=== PATIENT | male | born 1940 | race Caucasian/White ===

== ENCOUNTER 2018-05-31 07:22 | Inpatient (IN) | payer MEDICARE, BC ==
[~2018-05-31] VITALS: Ht 193 cm; Wt 72.6 kg
[2018-05-31 08:20] VITALS: BP 99/55
[2018-05-31 08:30] LABS: ANION GAP 8 mmol/L (5-15); BLOOD UREA NITROGEN 52 mg/dL (7-18); CALCIUM 9.5 MG/DL (8.5-10.1); CARBON DIOXIDE 24 MMOL/L (21-32); CHLORIDE 108 MMOL/L (98-107); CREATININE 1.6 MG/DL (0.55-1.30); POTASSIUM 3.8 MMOL/L (3.5-5.1); SODIUM 140 MMOL/L (136-145)
[2018-05-31 08:33] LABS: BASOPHILS % (AUTO) 0.5 % (0.0-2.0); EOSINOPHILS % (AUTO) 0.1 % (0.0-3.0); HEMATOCRIT 30.1 % (42.0-52.0); HEMOGLOBIN 10.1 G/DL (14.2-18.0); LYMPHOCYTES % (AUTO) 11.9 % (20.0-45.0); MEAN CORPUSCULAR VOLUME 91 FL (80-99); MONOCYTES % (AUTO) 7.3 % (1.0-10.0); NEUTROPHILS % (AUTO) 80.2 % (45.0-75.0); PLATELET COUNT 146 K/UL (150-450); RED BLOOD COUNT 3.29 M/UL (4.70-6.10); WHITE BLOOD COUNT 8.6 K/UL (4.8-10.8)
[2018-05-31] MEDS ORDERED: HYDRALAZINE HCL50 MG ORAL (08:42)
[2018-05-31] MEDS ORDERED: DIOVAN160 MG ORAL (08:42)
[2018-05-31] MEDS ORDERED: PANTOPRAZOLE SO40 MG ORAL (08:42)
[2018-05-31] MEDS ORDERED: PROSCAR5 MG ORAL (08:42)
[2018-05-31] MEDS ORDERED: QUINAPRIL HCL20 MG PO (08:42)
[2018-05-31 08:44] LABS: ALANINE AMINOTRANSFERASE 21 U/L (12-78); ALBUMIN 3.5 G/DL (3.4-5.0); ALBUMIN/GLOBULIN RATIO 1.1 (1.0-2.7); ALKALINE PHOSPHATASE 61 U/L (46-116); ASPARTATE AMINO TRANSFERASE 16 U/L (15-37); BILIRUBIN,TOTAL 0.7 MG/DL (0.2-1.0); CKMB < 0.5 NG/ML (0.0-3.6); CREATINE KINASE 96 U/L (26-308)
--- NOTE | 2018-05-31 08:47 | Emergency Room Report ---
History of Present Illness General Chief Complaint: General Complaint Source: EMS Present Illness HPI 77-year-old male presents ED for evaluation. Patient brought in by EMS for shaking episode. Witnessed by this morning. States that his arms and legs were shaking uncontrollably. Lasted for approximately 15-20 seconds. Had 4 episodes. States that patient appeared conscious the entire time. No tongue injury. No incontinence. No prior history of seizures. states that patient had a few falls this past week. States has been very hot outside. Appears at baseline mentation. Denies any chest pain or shortness of breath. Denies fevers or chills. No other aggravating relieving factors. Denies any other associated symptoms Allergies: Coded Allergies: TETRACYCLINE (Verified Allergy, Unknown, 05/31/18) Patient History Past Medical History: HTN Past Surgical History: none Pertinent Family History: none Social History: Denies: smoking, alcohol use, drug use Immunizations: UTD Reviewed Nursing Documentation: PMH: Agreed; PSxH: Agreed Nursing Documentation-PMH Past Medical History: No History, Except For Hx Hypertension: Yes Review of Systems All Other Systems: negative except mentioned in HPI Physical Exam Vital Signs Date Time Temp Pulse Resp B/P (MAP) Pulse Ox O2 Delivery O2 Flow Rate FiO2 05/31/18 07:18 99.1 89 16 152/86 99 Room Air 99.1 05/31/18 08:20 2.0 Sp02 EP Interpretation: reviewed, normal General Appearance: no apparent distress, alert, GCS 15, non-toxic, cachetic Head: normocephalic, atraumatic Eyes: bilateral eye normal inspection, bilateral eye PERRL ENT: hearing grossly normal, normal pharynx, no angioedema, normal voice Neck: full range of motion, supple/symm/no masses Respiratory: chest non-tender, lungs clear, normal breath sounds, speaking full sentences Cardiovascular #1: regular rate, rhythm, no edema Cardiovascular #2: 2+ carotid (R), 2+ carotid (L), 2+ radial (R), 2+ radial (L) , 2+ dorsalis pedis (R), 2+ dorsalis pedis (L) Gastrointestinal: normal bowel sounds, non tender, soft, non-distended, no guarding, no rebound Rectal: deferred Genitourinary: normal inspection, no CVA tenderness Musculoskeletal: back normal, gait/station normal, normal range of motion, non- tender Neurologic: alert, oriented x3, responsive, cellular equipment installer III-XII nml as tested, motor strength/tone normal, sensory intact, speech normal Psychiatric: judgement/insight normal, memory normal, mood/affect normal, no suicidal/homicidal ideation Reflexes: 3+ bicep (R), 3+ bicep (L), 3+ tricep (R), 3+ tricep (L), 3+ knee (R) , 3+ knee (L) Skin: normal color, no rash, warm/dry, well hydrated Lymphatic: no adenopathy Medical Decision Making Diagnostic Impression: Primary Impression: Generalized weakness Additional Impressions: Dehydration Heat exhaustion Qualified Codes: T67.5XXA - Heat exhaustion, unspecified, initial encounter Ascending aortic aneurysm ER Course Hospital Course 77 yo M presents with increased weakness, recent falls, ? seizure activity Differential diagnoses include: [place]/unstable angina, arrythmia, dehydration, CVA/ TIA Clinical course Patient placed on stretcher. on monitoring analyst. After initial history and physical I ordered labs, EKG, chest x-ray, IVFs, CT Brain labs reviewed- no leukocytosis, hemoglobin/hematocrit ok, BUN/Cr elevated, troponins negative, UA negative EKG- NSR, no acute ischemic changes interpreted by me Chest x-ray- ? ascending aortic aneurysum CT brain-unremarkable no chest pain or SOB during ED course. Questionable if patient had seizure as he was conscious during episode. No history of seizure. Could be related to dehydration versus heat exhaustion. Patient's clinical status improved with IV hydration. Case discussed with Dr. Murdock and he agreed to accept the patient to his service for further care and support I. I feel this is a highly complex case requiring extensive working including EKG/Rhythm strip, Xray/CT/US, Blood/urine lab work, repeat exams while in ED, and administration of strong opiates/narcotics for pain control, admission to hospital or close patient follow up. Diagnosis - generalized weakness, dehydration, heat exhaustion, ascending aortic aneurysm admitted to telemetry in serious condition Labs Test 05/31/18 07:47 05/31/18 08:05 05/31/18 09:49 White Blood Count 8.6 K/UL (4.8-10.8) Red Blood Count 3.29 M/UL (4.70-6.10) Hemoglobin 10.1 G/DL (14.2-18.0) Hematocrit 30.1 % (42.0-52.0) Mean Corpuscular Volume 91 FL (80-99) Mean Corpuscular Hemoglobin 30.7 PG (27.0-31.0) Mean Corpuscular Hemoglobin Concent 33.6 G/DL (32.0-36.0) Red Cell Distribution Width 11.0 % (11.6-14.8) Platelet Count 146 K/UL (150-450) Mean Platelet Volume 5.2 FL (6.5-10.1) Neutrophils (%) (Auto) 80.2 % (45.0-75.0) Lymphocytes (%) (Auto) 11.9 % (20.0-45.0) Monocytes (%) (Auto) 7.3 % (1.0-10.0) Eosinophils (%) (Auto) 0.1 % (0.0-3.0) Basophils (%) (Auto) 0.5 % (0.0-2.0) Prothrombin Time 11.4 SEC (9.30-11.50) Prothromb Time International Ratio 1.1 (0.9-1.1) Activated Partial Thromboplast Time 28 SEC (23-33) Sodium Level 140 MMOL/L (136-145) Potassium Level 3.8 MMOL/L (3.5-5.1) Chloride Level 108 MMOL/L (98-107) Carbon Dioxide Level 24 MMOL/L (21-32) Anion Gap 8 mmol/L (5-15) Blood Urea Nitrogen 52 mg/dL (7-18) Creatinine 1.6 MG/DL (0.55-1.30) Estimat Glomerular Filtration Rate mL/min (>60) Glucose Level 130 MG/DL (74-106) Calcium Level 9.5 MG/DL (8.5-10.1) Total Bilirubin 0.7 MG/DL (0.2-1.0) Aspartate Amino Transf (AST/SGOT) 16 U/L (15-37) Alanine Aminotransferase (ALT/SGPT) 21 U/L (12-78) Alkaline Phosphatase 61 U/L (46-116) Total Creatine Kinase 96 U/L (26-308) Creatine Kinase MB < 0.5 NG/ML (0.0-3.6) Creatine Kinase MB Relative Index 0.5 Troponin I 0.009 ng/mL (0.000-0.056) Total Protein 6.8 G/DL (6.4-8.2) Albumin 3.5 G/DL (3.4-5.0) Globulin 3.3 g/dL Albumin/Globulin Ratio 1.1 (1.0-2.7) Urine Color Yellow Urine Appearance Clear Urine pH 7 (4.5-8.0) Urine Specific [place] 1.010 (1.005-1.035) Urine Protein 1+ (NEGATIVE) Urine Glucose (UA) Negative (NEGATIVE) Urine Ketones Negative (NEGATIVE) Urine Occult Blood Negative (NEGATIVE) Urine Nitrite Negative (NEGATIVE) Urine Bilirubin Negative (NEGATIVE) Urine Urobilinogen Normal MG/DL (0.0-1.0) Urine Leukocyte Esterase Negative (NEGATIVE) Urine RBC 0-2 /HPF (0 - 0) Urine WBC 0-2 /HPF (0 - 0) Urine Squamous Epithelial Cells Occasional /LPF Urine Bacteria Occasional /HPF (NONE) Urine Hyaline Casts 0-2 /LPF (NONE) Lactic Acid Level 2.50 mmol/L (0.4-2.0) EKG Diagnostic Results Rate: normal Rhythm: NSR ST Segments: no acute changes ASA given to the pt in ED: No Rhythm Strip Diag. Results EP Interpretation: yes Rhythm: NSR, no PVC's, no ectopy Chest X-Ray Diagnostic Results Chest X-Ray Diagnostic Results : Chest X-Ray Ordered: Yes # of Views/Limited/Complete: 1 View Indication: Other - weakness EP Interpretation: Yes Interpretation: no consolidation, no effusion, no pneumothorax, other - ? ascending aortic aneurysum Impression: Other - ? ascending aortic anerysum Electronically Signed by: Electronically signed by Ahmet Dwyer MD CT/MRI/US Diagnostic Results CT/MRI/US Diagnostic Results : Imaging Test Ordered: CT Head Impression no acute process Last Vital Signs Date Time Temp Pulse Resp B/P (MAP) Pulse Ox O2 Delivery O2 Flow Rate FiO2 05/31/18 08:20 75 15 99/55 97 Nasal Cannula 2.0 05/31/18 07:18 99.1 99.1 Status: improved Disposition: ADMITTED INPATIENT Condition: Serious Referrals: Mitul Murdock MD (PCP) Ahmet Dwyer MD May 31, 2018 08:47
[2018-05-31 08:48] LABS: APPEARANCE,URINE CLEAR; BILIRUBIN, URINE NEGATIVE (NEGATIVE); COLOR,URINE YELLOW; GLUCOSE, URINE (UA) NEGATIVE (NEGATIVE); KETONES,URINE NEGATIVE (NEGATIVE); LEUKOCYTE ESTERASE ,URINE NEGATIVE (NEGATIVE); NITRITE,URINE NEGATIVE (NEGATIVE); PH,URINE 7 (4.5-8.0); PROTEIN,URINE 1+ (NEGATIVE); UROBILINOGEN,URINE NORMAL MG/DL (0.0-1.0)
[2018-05-31 08:53] LABS: INR 1.1 (0.9-1.1)
--- NOTE | 2018-05-31 09:06 | Diagnostic Imaging Report ---
EXAM: CT Head Without Intravenous Contrast CLINICAL HISTORY: FALL TECHNIQUE: Axial computed tomography images of the head/brain without intravenous contrast. One or more of the following dose reduction techniques were used: automated exposure control, adjustment of the mA and/or kV according to patient size, use of iterative reconstruction technique. CT DI 70.38 DLP 1541 COMPARISON: No relevant prior studies available. FINDINGS: Brain: No intracranial hemorrhage or mass effect. Involutional and microvascular ischemic changes. Ventricles: Unremarkable. No ventriculomegaly. Bones/joints: Unremarkable. No acute fracture. Soft tissues: Unremarkable. Sinuses: Right maxillary sinusitis. Mastoid air cells: Unremarkable as visualized. No mastoid effusion. IMPRESSION: No acute brain or skull injury. Senescent changes. Right maxillary sinusitis.
--- NOTE | 2018-05-31 09:37 | Diagnostic Imaging Report ---
EXAM: XR Chest, 1 View CLINICAL HISTORY: WEAK TECHNIQUE: Frontal view of the chest. COMPARISON: No relevant prior studies available. FINDINGS: Lungs: Unremarkable. No consolidation. Pleural space: Unremarkable. No pneumothorax. Heart: Unremarkable. No cardiomegaly. Mediastinum: Prominent bulge along the mid right mediastinal contour. Possible ascending aortic aneurysm. Bones/joints: Unremarkable. IMPRESSION: Prominent bulge along the mid right mediastinal contour. Possible ascending aortic aneurysm. No consolidation or vascular congestion
[2018-05-31 11:14] VITALS: BP 138/63
[2018-05-31 11:15] VITALS: BP 134/67
[2018-05-31 12:00] VITALS: BP 134/67
[2018-05-31 16:00] VITALS: BP 117/65
--- NOTE | 2018-05-31 17:15 | History & Physical ---
History and Physical History & Physicial #[id number] frequent falls rhythmic movement which is not characteristic of seizure activity doubt AA but will order echo IVF home meds Hilda Correia DO May 31, 2018 17:15
[2018-05-31 20:00] VITALS: BP 115/66
--- NOTE | 2018-05-31 21:00 | History and Physical Report ---
DATE OF ADMISSION: 05/31/2018 REASON FOR ADMISSION: Falls. HISTORY OF PRESENT ILLNESS: This is a 77-year-old gentleman, who was seen in the [place] emergency room after his states that he has been falling more frequently, fell this morning, but did not hit his head. He was able to get up on his own and then was lying in bed and had some rhythmic movement, but did not lose consciousness, did not lose any bowel or bladder function. Said he was awake for the entire episode and did not have any postictal or . Although she was describing as convulsions, it does not appear to be seizure activity. PAST MEDICAL HISTORY: Includes hypertension. SOCIAL HISTORY: Negative for tobacco or drugs. MEDICATIONS: Pre-hospital and present medications are reviewed, reconciled, documented in electronic medical record by dose, frequency, and route. PAST SURGICAL HISTORY: Negative.Physical examination GENERAL: At the time of my exam, he is alert, he is oriented, fair historian, no acute distress. VITAL SIGNS: He has a low-grade temperature at 99.1, pulse is 56, blood pressure is 99/55 is the low and the high is 152/86, he is on 2 liters nasal cannula and he is saturating 97%. HEENT: He is normocephalic, atraumatic. Oropharynx is dry. Nasal mucosa is dry. NECK: Supple. LUNGS: Have scattered rhonchi and wheezes. HEART: Regular rate and rhythm without a murmur. ABDOMEN: Soft, nontender. Positive bowel sounds. EXTREMITIES: No edema. He has multiple ecchymoses, skin tears, and wounds from his episodes of falling. LABORATORY AND DIAGNOSTIC DATA: His white count is 8.6, his hemoglobin 10.1, and his platelets 146. His sodium is 140, potassium 3.8, chloride 108, bicarbonate 24, BUN 52, creatinine 1.6. Glucose is 130. Initial lactate 2.5, is now 1. LFTs are normal. Troponins negative. EKG is normal sinus rhythm with nonspecific ST-T wave changes. His urinalysis is negative for leukocyte esterase. His chest x-ray was essentially negative, however, the radiologist felt that there was a prominent bulge along the right mediastinal contour with possible ascending aortic aneurysm and no consolidation was noted. CT of the head was also reported as no acute brain injury or skull injury. ASSESSMENT: 1. Multiple falls with multiple skin tears and lesions. 2. Renal insufficiency. 3. Dehydration. 4. Hypertension. 5. Questionable abnormal chest x-ray. PLAN: At this point, this does not appear to be seizure activity and further evaluation will not be obtained as the patient did not lose consciousness, no bowel or bladder loss, and he said he was able to stop and control the activity of unclear significance. We will ask Cardiology to see the patient regarding the abnormal chest x-ray. Unable to get a CT scan with contrast to evaluate for aneurysm. At this time as the patient's creatinine is 1.6, he is hemodynamically stable and blood pressures are equal. We will continue to follow for the remainder of his hospital stay. Intravenous fluids, no antibiotics, nebulizers, and wound care. Hilda Correia D.O. DR: BRITTANY JOB#: [id number] CC:
[2018-05-31] MEDS: HydrALAZINE 50mg tab ORAL SCH (21:43)
[2018-06-01] VITALS: BP 124/60
[2018-06-01 04:00] VITALS: BP 119/68
[2018-06-01 04:57] LABS: BASOPHILS % (AUTO) 0.7 % (0.0-2.0); EOSINOPHILS % (AUTO) 1.6 % (0.0-3.0); HEMATOCRIT 24.3 % (42.0-52.0); HEMOGLOBIN 8.5 G/DL (14.2-18.0); LYMPHOCYTES % (AUTO) 23.6 % (20.0-45.0); MEAN CORPUSCULAR VOLUME 92 FL (80-99); MONOCYTES % (AUTO) 8.5 % (1.0-10.0); NEUTROPHILS % (AUTO) 65.7 % (45.0-75.0); PLATELET COUNT 104 K/UL (150-450); RED BLOOD COUNT 2.63 M/UL (4.70-6.10); RED CELL DISTRIBUTION WIDTH 10.9 % (11.6-14.8); WHITE BLOOD COUNT 6.7 K/UL (4.8-10.8)
[2018-06-01 05:05] LABS: ANION GAP 5 mmol/L (5-15); BLOOD UREA NITROGEN 36 mg/dL (7-18); CALCIUM 8.4 MG/DL (8.5-10.1); CARBON DIOXIDE 24 MMOL/L (21-32); CHLORIDE 111 MMOL/L (98-107); POTASSIUM 4.1 MMOL/L (3.5-5.1); SODIUM 140 MMOL/L (136-145)
[2018-06-01 08:00] VITALS: BP 154/78
[2018-06-01] MEDS: Irbesartan 150mg tablet ORAL SCH (09:40)
[2018-06-01] MEDS: HydrALAZINE 50mg tab ORAL SCH ×2 (09:40→21:25)
--- NOTE | 2018-06-01 09:54 | Diagnostic Imaging Report ---
EXAM: XR Chest, 1 View CLINICAL HISTORY: COUGH TECHNIQUE: Frontal view of the chest. COMPARISON: No relevant prior studies available. FINDINGS: Lungs: Limited assessment of the right apex due to head positioning. No visualized consolidation. Pleural space: Below the left hemidiaphragm. No clear effusion or pneumothorax. Heart: Unremarkable. No cardiomegaly. Mediastinum: Unremarkable. Bones/joints: Unremarkable. IMPRESSION: No acute findings.
[2018-06-01 12:00] VITALS: BP 139/68
--- NOTE | 2018-06-01 13:36 | Pulmonology Progress Note ---
Assessment/Plan Assessment/Plan 1. Multiple falls with multiple skin tears and lesions. 2. Renal insufficiency. 3. Dehydration. 4. Hypertension. 5. no evidence of seizure activity 6. no evidence of aortic aneurysm needs home efrain for wound care bathe patient has he has foul oder o2 pt fall precautions dc planning dw extensively Subjective ROS Limited/Unobtainable: Yes Allergies: Coded Allergies: TETRACYCLINE (Verified Allergy, Unknown, 05/31/18) Subjective no distress toerlating po not getting oob wounds noted no seizure activity noted echo completed without signs aneurysm and repeat CXR no concerns for aneurysm Objective Last 24 Hour Vital Signs Date Time Temp Pulse Resp B/P (MAP) Pulse Ox O2 Delivery O2 Flow Rate FiO2 06/01/18 12:00 58 06/01/18 12:00 98.6 66 21 139/68 (91) 99 98.6 06/01/18 09:40 154/78 06/01/18 09:40 154/78 06/01/18 09:00 Nasal Cannula 2.0 06/01/18 08:00 97.7 68 20 154/78 (103) 98 97.7 06/01/18 08:00 67 06/01/18 04:00 46 06/01/18 04:00 97.7 58 24 119/68 (85) 100 97.7 06/01/18 00:00 57 06/01/18 00:00 98.4 62 24 124/60 (81) 97 98.4 05/31/18 21:43 115/66 05/31/18 21:00 Nasal Cannula 2.0 05/31/18 20:00 98.5 69 20 115/66 (82) 98 98.5 05/31/18 20:00 67 05/31/18 16:00 98.1 66 19 117/65 (82) 98 98.1 05/31/18 16:00 69 Intake and Output 05/31/18 06/01/18 19:00 07:00 Intake Total 1717.5 ml 925 ml Output Total 150 ml 150 ml Balance 1567.5 ml 775 ml Intake Oral 240 ml 100 ml IV Total 1477.5 ml 825 ml Output Urine Total 150 ml 150 ml # Voids 1 2 General Appearance: cachetic HEENT: atraumatic, anicteric Respiratory/Chest: lungs clear Cardiovascular: normal rate Abdomen: soft, non tender, non distended Skin: lesions Neurologic/Psychiatric: disoriented Laboratory Tests 06/01/18 03:50: White Blood Count 6.7, Red Blood Count 2.63L, Hemoglobin 8.5L, Hematocrit 24.3L , Mean Corpuscular Volume 92, Mean Corpuscular Hemoglobin 32.3H, Mean Corpuscular Hemoglobin Concent 34.9, Red Cell Distribution Width 10.9L, Platelet Count 104L, Mean Platelet Volume 5.7L, Neutrophils (%) (Auto) 65.7, Lymphocytes (%) (Auto) 23.6, Monocytes (%) (Auto) 8.5, Eosinophils (%) (Auto) 1.6, Basophils (%) (Auto) 0.7, Sodium Level 140, Potassium Level 4.1, Chloride Level 111H, Carbon Dioxide Level 24, Anion Gap 5, Blood Urea Nitrogen 36H, Creatinine 1.0, Estimat Glomerular Filtration Rate , Glucose Level 104, Calcium Level 8.4L Current Medications Medications (Trade) Dose Ordered Sig/Alexander Route PRN Reason Start Time Stop Time Status Last Admin Dose Admin Dextrose (Dextrose 50%) 25 ml STAT PRN IV Hypoglycemia 05/31/18 11:30 06/30/18 11:29 Dextrose (Dextrose 50%) 50 ml STAT PRN IV Hypoglycemia 05/31/18 11:30 06/30/18 11:29 Finasteride (Proscar) 5 mg DAILY ORAL 05/31/18 11:30 06/30/18 11:29 06/01/18 09:40 Hydralazine HCl (Apresoline) 50 mg Q12HR ORAL 05/31/18 21:00 06/30/18 20:59 06/01/18 09:40 Irbesartan (Avapro) 150 mg DAILY ORAL 06/01/18 09:00 07/01/18 08:59 06/01/18 09:40 Pantoprazole (Protonix) 40 mg DAILY ORAL 05/31/18 11:30 06/30/18 11:29 06/01/18 09:40 Sodium Chloride 1,000 ml @ 75 mls/hr [id number] 05/31/18 12:00 06/30/18 11:59 06/01/18 00:52 Hilda Correia DO Jun 01, 2018 13:36
[2018-06-01 16:00] VITALS: BP 150/77
--- NOTE | 2018-06-01 18:29 | Cardiology Report ---
APPROVED REPORT EXAM: Two-dimensional and M-mode echocardiogram with Doppler and color Doppler. INDICATION ANEURISM OF THE HEART M-Mode DIMENSIONS IVSd1.2 (0.7-1.1cm)Left Atrium (MM)3.8 (1.6-4.0cm) LVDd3.4 (3.5-5.6cm)Aortic Root3.3 (2.0-3.7cm) PWd1.0 (0.7-1.1cm)Aortic Cusp Exc.1.6 (1.5-2.0cm) IVSs1.7 cm LVDs2.0 (2.5-4.0cm) PWs1.5 cm Technically difficult study due to poor parasternal acoustical windows. Normal left ventricular chamber size, systolic function and wall motion to extent visualized. Left ventricular ejection fraction estimated to be 60-65 %. Mild left ventricular hypertrophy by 2-D. No evidence of pericardial effusion. All other cardiac chamber sizes are within normal limits. Focal aortic valve sclerosis with adequate cusp excursion. Thickened mitral valve leaflets with normal excursion. Mitral annulus and aortic root calcification. Normal pulmonic valve structure. Normal tricuspid valve structure. IVC at normal size with physiologic collapse. A color flow and spectral Doppler study was performed and revealed: No aortic regurgitation. Mild mitral regurgitation. Mitral diastolic velocities suggest reduced left ventricular relaxation c/w mild LV diastolic dysfunction (Grade I ). Mild tricuspid regurgitation. Tricuspid systolic velocities suggests peak right ventricular systolic pressure of18 mmHg. No Pulmonic regurgitation present.
--- NOTE | 2018-06-01 18:37 | Cardiology Report ---
APPROVED REPORT EKG Measurement Heart [id number] Normal sinus rhythm Normal ECG
[2018-06-01 20:00] VITALS: BP 141/73
[2018-06-02] VITALS: BP 147/73
[2018-06-02 04:00] VITALS: BP 129/55
[2018-06-02 08:00] VITALS: BP 130/57
[2018-06-02] MEDS: Irbesartan 150mg tablet ORAL SCH (09:40)
[2018-06-02] MEDS: HydrALAZINE 50mg tab ORAL SCH (09:40)
[2018-06-02 09:54] LABS: HEMATOCRIT 31.5 % (42.0-52.0); HEMOGLOBIN 10.6 G/DL (14.2-18.0); MEAN CORPUSCULAR VOLUME 91 FL (80-99); PLATELET COUNT 149 K/UL (150-450); RED BLOOD COUNT 3.47 M/UL (4.70-6.10); RED CELL DISTRIBUTION WIDTH 10.8 % (11.6-14.8); WHITE BLOOD COUNT 11.3 K/UL (4.8-10.8)
[2018-06-02 10:06] LABS: ANION GAP 10 mmol/L (5-15); BLOOD UREA NITROGEN 30 mg/dL (7-18); CALCIUM 8.8 MG/DL (8.5-10.1); CARBON DIOXIDE 23 MMOL/L (21-32); CHLORIDE 109 MMOL/L (98-107); CREATININE 1.2 MG/DL (0.55-1.30); SODIUM 142 MMOL/L (136-145)
[2018-06-02 12:00] VITALS: BP 136/58
--- NOTE | 2018-06-03 10:52 | Discharge Summary ---
Discharge Summary Discharge Summary _ DATE OF ADMISSION: 05/31/2018 DATE OF DISCHARGE: 06/02/2018 REASON FOR ADMISSION: 77 years old male with past medical history of hypertension ,presented to emergency room with frequent falls with multiply skin tears and lesions. Patient reported last fall in the morning. He denied hitting his head. Patient was able to get up on his own. Patient 's reported shaking rhythmic movement, but no loss of consciousness, no loss of bowel or bladder function. Patient was awake during the entire episode and did not have any postictal confusion. Upon evaluation vital signs were stable. Troponin was negative. Urinalysis revealed no evidence of UTI. Hemoglobin 10.1, hematocrit 30.1 EKG revealed normal sinus rhythm, no acute ischemic changes BUN 52 creatinine 1.6 ; lactic acid 2.5 Chest x-ray revealed questionable ascending aortic aneurysm. CT of the head revealed no acute intracranial pathology. Patient admitted with diagnosis of dehydration due to heat exhaustion , multiply falls with multiple skin tears and lesions, hypertension, renal insufficiency, questionable abnormal chest x-ray HOSPITAL COURSE: Patient admitted to [facility]. Patient was on the IV hydration. No further shaking episodes or seizure-like activities. Patient unlikely had a seizure episode, given no loss of consciousness , no loss of bowel or bladder function and being awake through the entire episode. CT scan unable to be done due to elevated creatinine. Supplemental oxygen and pulmonary toilet provided as needed Wound care provided Blood pressure was managed with the ARB and Hydralazine. GI prophylaxis provided. Patient was working with physical therapist. Fall precautions were maintained. Renal parameters and electrolytes were closely monitored. Nephrotoxins were avoided. Electrolytes corrected as needed. Prior to discharge BUN from 52 down to 30 and creatinine from 1.6 down to 1.2. Venous duplex bilateral lower extremity was negative. Echocardiogram revealed preserved ejection fraction of 60-65% and evidence of mild left ventricular hypertrophy. Follow-up chest X-ray revealed no evidence of ascending aortic aneurysm. Home Health was arranged for wound care and physical therapy. Patient was stable for discharge FINAL DIAGNOSES: Multiple falls with skin tears and lesions Dehydration due to heat exhaustion Hypertension Renal insufficiency, likely due to dehydration -resolved DISCHARGE MEDICATIONS: See Medication Reconciliation list. DISCHARGE INSTRUCTIONS: Patient was discharged home with home health services to follow. Follow-up with r primary care provider in one week I have been assigned to dictate discharge summary for this account. I was not involved in the patient's management. Leah Ley NP Jun 03, 2018 10:52
--- NOTE | 2018-06-03 13:48 | Diagnostic Imaging Report ---
APPROVED REPORT CPT Code: 93784 Present Symptoms Comments: Cellulits BILATERAL: Imaging reveals a patent deep venous system bilaterally. There is no evidence of thrombus within the femoral, popliteal or tibial segments. The greater saphenous veins are also within normal limits. Doppler indicates normal spontaneous flow within these segments.
== END 2018-06-02 14:45 | disposition home health service (06) | DRG 641 ==
LOC: EDBD 07:22 → EMR 07:30 → EDBEDREQ 10:00 → 2W 10:12
DX: E86.0 Dehydration (principal); I10 Essential (primary) hypertension; R29.6 Repeated falls; R93.8 Abnormal findings on diagnostic imaging of other specified body structures; N28.9 Disorder of kidney and ureter, unspecified; T67.5XXA Heat exhaustion, unspecified, initial encounter; X58.XXXA Exposure to other specified factors, initial encounter; Y92.89 Other specified places as the place of occurrence of the external cause
CPT/HCPCS: 36415; 70450; 71045; 80048; 80053; 81003; 82550; 82553; 83605; 84484; 85007; 85025; 85610; 85730; 87040; 93005; 93306; 93970; 99285